=== PATIENT | female | born 1985 | race Caucasian/White ===

== ENCOUNTER 2017-12-06 13:22 | Emergency (ER) | payer OTHER ==
[2017-12-06 13:27] VITALS: BP 132/62; PULSE 100; TEMP 97.8; BMI 36.6
[2017-12-06] MEDS ORDERED: ACETAMINOPHEN 500 MG TABLET (FP) PO ONE (14:27)
[2017-12-06] MEDS ORDERED: ACETAMINOPHEN 500 MG TABLET (FP) ONE (14:30)
--- NOTE | 2017-12-06 14:33 | PDOC ---
History of Present Illness - General Chief Complaint: Pain Stated Complaint: INJURY Time Seen by Provider: 12/06/17 14:17 History Source: Patient Exam Limitations: No Limitations - History of Present Illness Initial Comments: 12/06/17 14:28 While running for a bus yesterday slipped and fell forward onto bilateral knees and twisted right ankle. States was evaluated in another emergency department but no x-rays or treatment was provided for her sore right ankle. Denies numbness or tingling to foot, states is difficult to bear weight. Has taken no medication for relief or provided any treatment Occurred: reports: yesterday Severity: reports: mild Method of Injury: Yes: fall Modifying Factors: improves with: None Loss of Consciousness: no loss of consciousness Associated Symptoms (Fall): denies symptoms Past History - Travel Traveled outside of the country in the last 30 days: No Close contact w/someone who was outside of country & ill: No - Past Medical History Allergies/Adverse Reactions: Allergies Allergy/AdvReac Type Severity Reaction Status Date / Time Penicillins Allergy Rash Verified 12/06/17 13:27 ibuprofen [From Motrin] AdvReac chest Verified 12/06/17 13:27 tightness Home Medications: Ambulatory Orders Methylphenidate HCl [Concerta] 54 mg PO DAILY 10/09/16 Risperidone [Risperdal] 6 mg PO HS 10/09/16 Sertraline HCl [Zoloft -] 100 mg PO DAILY 10/09/16 Zolpidem Tartrate [Ambien] 10 mg PO HS PRN 10/09/16 Emtricitabine/Tenofovir [Truvada -] 1 tab PO DAILY #30 tablet 10/16/16 Acetaminophen [Tylenol] 325 mg PO Q6H PRN #30 tablet 12/06/17 COPD: No Diabetes: No - Surgical History Appendectomy: Yes (2013) - Suicide/Smoking/Psychosocial Hx Smoking History: Current every day smoker Have you smoked in the past 12 months: Yes Number of Cigarettes Smoked Daily: 20 Information on smoking cessation initiated: No Hx Alcohol Use: No Drug/Substance Use Hx: Yes Review of Systems - Review of Systems Able to Perform ROS?: Yes Is the patient limited [place]ian proficient: Yes Constitutional: Yes: Symptoms Reported, See HPI, Chills, Malaise HEENTM: Yes: See HPI. No: Symptoms Reported Respiratory: Yes: See HPI. No: Symptoms reported Musculoskeletal: Yes: Symptoms Reported, See HPI, Joint Pain. No: Joint Swelling Integumentary: Yes: Symptoms Reported, See HPI, Bruising Neurological: Yes: See HPI. No: Symptoms reported, Headache All Other Systems: Reviewed and Negative *Physical Exam - Vital Signs Last Vital Signs Temp Pulse Resp BP Pulse Ox 97.8 F 100 H 20 132/62 97 12/06/17 13:25 12/06/17 13:25 12/06/17 13:25 12/06/17 13:25 12/06/17 13:25 - Physical Exam General Appearance: Yes: Nourished, Appropriately Dressed. No: Apparent Distress HEENT: positive: LUIS FERNANDO, Normal ENT Inspection, Normal Voice, TMs Normal, Pharynx Normal Neck: positive: Supple. negative: Tender Respiratory/Chest: positive: Lungs Clear, Normal Breath Sounds Gastrointestinal/Abdominal: positive: Normal Bowel Sounds, Soft. negative: Tender Musculoskeletal: positive: Other (faint superficial abrasions and ecchymoses to bilateral patella, patella is mobile without crepitus or step-offs, ). negative : Normal Inspection Extremity: positive: Normal Capillary Refill, Normal Range of Motion (he shouldn 't has no point tenderness to medial or lateral malleolus the tarsal or navicular bone, negative squeeze test. Neurovascular intact to toes) Integumentary: positive: Dry, Warm, Pale. 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 NML intact, Fully Oriented, Alert, Normal Mood/ Affect, Normal Response, Motor Strength 5/5 ED Treatment Course - RADIOLOGY Radiology Studies Ordered: Category Date Time Status ANKLE & FOOT-RIGHT* [RAD] Stat Radiology 12/06/17 14:28 Ordered Progress Note - Progress Note Progress Note: Right ankle sprain and multiple contusions *DC/Admit/Observation/Transfer Diagnosis at time of Disposition: Multiple leg contusions Qualifiers: Encounter type: initial encounter Laterality: unspecified laterality Qualified Code(s): S80.10XA - Contusion of unspecified lower leg, initial encounter Sprain of right ankle Qualifiers: Encounter type: initial encounter Involved ligament of ankle: unspecified ligament Qualified Code(s): S93.401A - Sprain of unspecified ligament of right ankle, initial encounter - Discharge Dispostion Disposition: HOME Condition at time of disposition: Stable Admit: No - Prescriptions Prescriptions: Acetaminophen [Tylenol] 325 mg PO Q6H PRN #30 tablet PRN Reason: Pain Level 1-5 - Referrals Referrals: Alfie Salvador MD [Staff Physician] - - Patient Instructions Printed Discharge Instructions: DI for Ankle Sprain Additional Instructions: Rest, ice to area on and off for 15 minutes 4-6 times a day Avoid heavy lifting or exercise until pain and swelling is resolved or until further directed Keep area highly elevated to reduce swelling Use splints/Slim wrap as directed Followup with orthopedist in one to 2 days if not improving, if significantly improved may wait one week for followup with orthopedist May use Tylenol 2-325mg every 4-6 hours as needed for pain - Post Discharge Activity
== END 2017-12-06 15:24 | disposition home or self-care (01) ==
LOC: JERFT 13:22
DX: S93.401A Sprain of unspecified ligament of right ankle, initial encounter (principal); S80.02XA Contusion of left knee, initial encounter; S80.01XA Contusion of right knee, initial encounter; W01.0XXA Fall on same level from slipping, tripping and stumbling without subsequent striking against object, initial encounter; Y93.63 Activity, rugby; Y92.480 Sidewalk as the place of occurrence of the external cause; Y99.8 Other external cause status
CPT/HCPCS: 73610-TC-RT; 73630-TC-RT; 99281-25

== ENCOUNTER 2022-09-20 11:01 | Inpatient (IN) | payer OTHER ==
[2022-09-20] MEDS ORDERED: predniSONE 20 MG TABLET (UD) PO ONE (11:43)
[2022-09-20] MEDS ORDERED: predniSONE 20 MG TABLET (UD) ONE (11:47)
[2022-09-20] MEDS ORDERED: MAG HYDROX/AL HYDROX/SIMETH 30 ML UNIT-DOSE CUP PO ONE (11:49)
[2022-09-20] MEDS ORDERED: cloNIDine HCL 0.1 MG TABLET PO ONE (11:50)
[2022-09-20] MEDS ORDERED: ALBUTEROL SO4 0.083% IH SOL 2.5 MG/3 ML VIAL.NEB. NEB ONE ×4 (11:50→12:48)
[2022-09-20] MEDS ORDERED: MAGNESIUM SULF 50% (8.12 MEQ/2 ML-1 GM VIAL) IVPB ONE (11:51)
[2022-09-20] MEDS ORDERED: FAMOTIDINE 20 MG TABLET PO ONE (11:53)
[2022-09-20] MEDS ORDERED: ACETAMINOPHEN 1000 MG/100 ML BAG IVPB ONE (11:53)
[2022-09-20] MEDS ORDERED: ACETAMINOPHEN INJECTION 100 ML IVPB ONE (11:59)
[2022-09-20] MEDS ORDERED: FAMOTIDINE 20 MG TABLET ONE (11:59)
[2022-09-20] MEDS ORDERED: cloNIDine HCL 0.1 MG TABLET ONE (11:59)
[2022-09-20] MEDS ORDERED: MAG HYDROX/AL HYDROX/SIMETH 30 ML UNIT-DOSE CUP ONE (12:00)
[2022-09-20] MEDS ORDERED: MAGNESIUM SULFATE IN WATER 2 GM/50 ML IVPB IVPB ONE (12:00)
[2022-09-20] MEDS ORDERED: LORazepam 2 MG/ML SDV VIAL IVPUSH ONE ×3 (12:10→13:43)
[2022-09-20 12:23] LABS: BASO % 0.2 % (0-2.0); HEMATOCRIT 36.7 % (32.4-45.2); HEMOGLOBIN 12.1 GM/dL (10.7-15.3); LYMPH % 6.1 % (8-40); MCH 29.5 pg (25.7-33.7); MEAN CELL VOLUME 89.4 fl (80-96); NEUT % 83.7 % (42.8-82.8); PLATELET COUNT 389 10^3/uL (134-434); RBC 4.11 M/mm3 (3.60-5.2); RDW 14.2 % (11.6-15.6); WHITE BLOOD COUNT 18.1 K/mm3 (4.0-10.0)
[2022-09-20 12:30] LABS: EPI CELLS 10 /uL (0-25.1); HYALINE CASTS 1 /uL (0-3.1); URINE APPEARANCE CLEAR; URINE BACTERIA 21 /uL (0-1359); URINE BILIRUBIN NEGATIVE (NEGATIVE); URINE COLOR YELLOW; URINE GLUCOSE (UA) NEGATIVE (NEGATIVE); URINE KETONE TRACE (NEGATIVE); URINE LEUK ESTERASE NEGATIVE (NEGATIVE); URINE NITRITE NEGATIVE (NEGATIVE); URINE PROTEIN 1+ (NEGATIVE); URINE RBC 12 /uL (0-23.9); URINE WBC 28 /uL (0-25.8)
[2022-09-20 12:45] LABS: CHLORIDE 101 mmol/L (98-107); SODIUM 140 mmol/L (136-145)
[2022-09-20 12:48] LABS: ANION GAP 9 MMOL/L (8-16); BLOOD UREA NITROGEN 15.7 mg/dL (7-18); CALCIUM 9.3 mg/dL (8.5-10.1); CO2 30 mmol/L (21-32); GLUCOSE,RANDOM 124 mg/dL (74-106); LIPASE 65 U/L (73-393); MAGNESIUM 2.4 mg/dL (1.8-2.4)
[2022-09-20 12:51] LABS: CREATININE 0.5 mg/dL (0.55-1.3); SGOT/AST 28 U/L (15-37); SGPT/ALT 41 U/L (13-61)
[2022-09-20 12:53] LABS: BILIRUBIN,TOTAL 0.3 mg/dL (0.2-1); TOT PROT 7.2 g/dl (6.4-8.2)
[2022-09-20 12:55] LABS: ALK PHOS 124 U/L (45-117)
[2022-09-20] MEDS ORDERED: ETOMIDATE 20 MG/10 ML AMPUL IVPUSH ONE (13:03)
[2022-09-20] MEDS ORDERED: SUCCINYLCHOLINE CHLORIDE 200 MG/10 ML VIAL IVPUSH ONE (13:05)
[2022-09-20] MEDS ORDERED: RAPID SEQUENCE INTUBATION KIT NR ONE ×2 (13:12→13:44)
[2022-09-20] MEDS ORDERED: ROCURONIUM BROMIDE 50 MG/5 ML VIAL IV ONE ×3 (13:40→14:13)
[2022-09-20 14:02] LABS: ARTERIAL BLD GAS O2 SATURATION 93.2 % (95-98); ARTERIAL BLOOD GAS BASE EXCESS 0.4 mmol/L (-2-2); ARTERIAL BLOOD GAS PO2 80.2 mmHg (80-100); ARTERIAL BLOOD GAS pH 7.232 (7.350-7.450)
[2022-09-20 14:05] LABS: ALLENS TEST POSITIVE; VENT MODE A/C; VENT RATE 12
[2022-09-20 14:48] LABS: SYPHILIS W/ RPR CONF NON-REACTIVE (NONREACTIVE)
[2022-09-20] MEDS ORDERED: VANCOMYCIN 1 GM/200 ML PREMIX BAG IVPB ONE (14:54)
[2022-09-20 15:18] LABS: HIV INTERPRETATION NEGATIVE (NEGATIVE)
[2022-09-20] MEDS: SODIUM CHLORIDE 1,000 ML IV SCH (15:30)
[2022-09-20] MEDS: PROPOFOL 1,000,000 MCG/100 ML VIAL IVPB SCH (15:31)
[2022-09-20] MEDS: HEPARIN NA (PORCINE) 5,000 UNITS/ML 1ML VIAL SQ SCH ×2 (15:31→21:29)
[2022-09-20] MEDS: AZITHROMYCIN IVPB 500 MG/250 ML BAG IVPB SCH (15:54)
[2022-09-20] MEDS ORDERED: LACTATED RINGERS SOLUTION 1,000 ML/1,000 ML INFUS.BAG IV STA (16:16)
[2022-09-20 16:19] LABS: ARTERIAL BLD GAS O2 SATURATION 88.5 % (95-98); ARTERIAL BLOOD GAS BASE EXCESS 3.7 mmol/L (-2-2); ARTERIAL BLOOD GAS PO2 61.5 mmHg (80-100); ARTERIAL BLOOD GAS pH 7.304 (7.350-7.450)
[2022-09-20] MEDS ORDERED: MIDAZOLAM IN 0.9 % SOD.CHLORID 1 MG/1 ML PLAST..BAG ONE (16:19)
[2022-09-20 16:21] LABS: ALLENS TEST POSITIVE
[2022-09-20 16:22] LABS: VENT MODE A/C; VENT RATE 22
[2022-09-20] MEDS: MIDAZOLAM IN 0.9 % SOD.CHLORID 100 MG/100 ML PLAST..BAG IVPB SCH (16:31)
[2022-09-20] MEDS ORDERED: ALBUTEROL SO4 2.5/IPRATROPIUM 0.5 INH SOL 3 ML VIAL.NEB. NEB SCH (17:00)
[2022-09-20] MEDS ORDERED: methylPREDNISolone NA SUCC 125 MG/2 ML VIAL IVPUSH ONE (17:47)
[2022-09-20 20:44] LABS: ARTERIAL BLD GAS O2 SATURATION 95.9 % (95-98); ARTERIAL BLOOD GAS BASE EXCESS 5.9 mmol/L (-2-2); ARTERIAL BLOOD GAS PO2 79.4 mmHg (80-100); ARTERIAL BLOOD GAS pH 7.427 (7.350-7.450)
[2022-09-20 20:45] LABS: ALLENS TEST POSITIVE
[2022-09-20 20:46] LABS: VENT MODE A/C; VENT RATE 22
[2022-09-20] MEDS: ALBUTEROL SO4 2.5/IPRATROPIUM 0.5 INH SOL 3 ML VIAL.NEB. NEB SCH (20:55)
[2022-09-20] MEDS: FAMOTIDINE 20 MG/50 ML IVPB 20 MG/50 ML MG IVPB SCH (21:28)
[2022-09-20] MEDS: MUPIROCIN 2% TOPICAL OINTMENT FOR DECOLONIZATION NS SCH (21:29)
[2022-09-20] MEDS: CHLORHEXIDINE GLUCONATE 4% CLEANSER FOR DECOLONIZATION TP SCH (21:29)
[2022-09-20] MEDS ORDERED: DEXMEDETOMIDINE PREMIX 400 MCG/100 ML BAG IVPB SCH (21:45)
[2022-09-21] MEDS: MIDAZOLAM IN 0.9 % SOD.CHLORID 100 MG/100 ML PLAST..BAG IVPB SCH ×4 (00:10→22:42)
[2022-09-21] MEDS: HEPARIN NA (PORCINE) 5,000 UNITS/ML 1ML VIAL SQ SCH ×3 (06:23→22:26)
[2022-09-21 06:59] LABS: ARTERIAL BLD GAS O2 SATURATION 91.8 % (95-98); ARTERIAL BLOOD GAS BASE EXCESS 4.1 mmol/L (-2-2); ARTERIAL BLOOD GAS PO2 63.1 mmHg (80-100); ARTERIAL BLOOD GAS pH 7.397 (7.350-7.450)
[2022-09-21 07:04] LABS: ALLENS TEST POSITIVE
[2022-09-21 07:05] LABS: VENT MODE A/C; VENT RATE 22
[2022-09-21 07:25] LABS: BASO % 0.5 % (0-2.0); HEMATOCRIT 35.5 % (32.4-45.2); HEMOGLOBIN 11.3 GM/dL (10.7-15.3); MCH 28.7 pg (25.7-33.7); MCHC 31.8 g/dl (32.0-36.0); MEAN CELL VOLUME 90.2 fl (80-96); MEAN PLT VOLUME 8.7 fl (7.5-11.1); NEUT % 88.5 % (42.8-82.8); PLATELET COUNT 372 10^3/uL (134-434); RBC 3.93 M/mm3 (3.60-5.2); RDW 14.3 % (11.6-15.6); WHITE BLOOD COUNT 12.5 K/mm3 (4.0-10.0)
[2022-09-21 07:42] LABS: INR 1.18 (0.83-1.09); PROTHROMBIN TIME (PATIENT) 13.6 SEC (9.7-13.0)
[2022-09-21] MEDS: SODIUM CHLORIDE 1,000 ML IV SCH ×3 (07:42→22:29)
[2022-09-21 07:45] LABS: ACTIVATED PTT 24.9 SECONDS (25.2-36.5)
[2022-09-21 07:55] LABS: ALBUMIN 2.6 g/dl (3.4-5.0); BLOOD UREA NITROGEN 11.9 mg/dL (7-18); CALCIUM 8.7 mg/dL (8.5-10.1); MAGNESIUM 2.9 mg/dL (1.8-2.4)
[2022-09-21 07:59] LABS: CREATININE 0.4 mg/dL (0.55-1.3); PHOSPHOROUS 3.8 mg/dL (2.5-4.9)
[2022-09-21 08:00] LABS: BILIRUBIN,TOTAL 0.5 mg/dL (0.2-1); TOT PROT 6.3 g/dl (6.4-8.2)
[2022-09-21] MEDS ORDERED: ALBUTEROL SO4 0.083% IH SOL 2.5 MG/3 ML VIAL.NEB. NEB STA ×2 (08:20)
[2022-09-21] MEDS: FENTANYL NS IVPB 500 MCG/100 ML BAG IVPB SCH ×6 (08:44→21:45)
[2022-09-21] MEDS: PROPOFOL 1,000,000 MCG/100 ML VIAL IVPB SCH (08:55)
[2022-09-21] MEDS: ALBUTEROL SO4 2.5/IPRATROPIUM 0.5 INH SOL 3 ML VIAL.NEB. NEB SCH ×4 (09:01→20:40)
[2022-09-21] MEDS: CEFTRIAXONE 1 GM in DEXTROSE 5%-WATER - 50 ML IVPB SCH (09:02)
[2022-09-21] MEDS: AZITHROMYCIN IVPB 500 MG/250 ML BAG IVPB SCH (09:04)
[2022-09-21] MEDS: FAMOTIDINE 20 MG/50 ML IVPB 20 MG/50 ML MG IVPB SCH ×2 (09:04→22:26)
[2022-09-21] MEDS: MUPIROCIN 2% TOPICAL OINTMENT FOR DECOLONIZATION NS SCH ×2 (09:05→22:26)
[2022-09-21] MEDS ORDERED: ROCURONIUM BROMIDE 50 MG/5 ML VIAL IV STA (09:43)
[2022-09-21] MEDS ORDERED: ROCURONIUM BROMIDE 50 MG/5 ML VIAL ONE (09:49)
[2022-09-21] MEDS ORDERED: CEFTRIAXONE 1 GM in DEXTROSE 5%-WATER - 50 ML IVPB SCH (10:00)
[2022-09-21] MEDS ORDERED: VECURONIUM BROMIDE 50 MG/50 ML VIAL IVPUSH STA (12:54)
[2022-09-21 13:23] LABS: ARTERIAL BLD GAS O2 SATURATION 93.6 % (95-98); ARTERIAL BLOOD GAS BASE EXCESS 3.6 mmol/L (-2-2); ARTERIAL BLOOD GAS PO2 70.8 mmHg (80-100); ARTERIAL BLOOD GAS pH 7.372 (7.350-7.450)
[2022-09-21 13:32] LABS: VENT MODE V-AC; VENT RATE 22
[2022-09-21] MEDS: VECURONIUM BROMIDE 100 MG/100 ML BAG IVPB SCH (13:57)
[2022-09-21] MEDS: ARTIFICIAL TEARS (POLYVINYL ALCOHOL) OPTH DROPS OU PRN (14:04)
[2022-09-21 18:32] LABS: ARTERIAL BLOOD GAS BASE EXCESS 1.3 mmol/L (-2-2); ARTERIAL BLOOD GAS PO2 81.1 mmHg (80-100); ARTERIAL BLOOD GAS pH 7.215 (7.350-7.450)
[2022-09-21 18:33] LABS: VENT MODE AC; VENT RATE 22
[2022-09-21] MEDS: methylPREDNISolone NA SUCC 40 MG/1 ML VIAL IVPUSH SCH (22:26)
[2022-09-21] MEDS: CHLORHEXIDINE GLUCONATE 4% CLEANSER FOR DECOLONIZATION TP SCH (22:26)
[2022-09-22] MEDS: FENTANYL NS IVPB 500 MCG/100 ML BAG IVPB SCH ×7 (01:45→20:26)
[2022-09-22 02:31] LABS: ARTERIAL BLD GAS O2 SATURATION 90.4 % (95-98); ARTERIAL BLOOD GAS BASE EXCESS 7.2 mmol/L (-2-2); ARTERIAL BLOOD GAS PO2 62.9 mmHg (80-100); ARTERIAL BLOOD GAS pH 7.354 (7.350-7.450)
[2022-09-22 02:33] LABS: VENT MODE A/C; VENT RATE 28
[2022-09-22] MEDS: methylPREDNISolone NA SUCC 40 MG/1 ML VIAL IVPUSH SCH ×4 (02:49→20:50)
[2022-09-22 06:48] LABS: ARTERIAL BLD GAS O2 SATURATION 91.3 % (95-98); ARTERIAL BLOOD GAS BASE EXCESS 5.9 mmol/L (-2-2); ARTERIAL BLOOD GAS PO2 64.2 mmHg (80-100); ARTERIAL BLOOD GAS pH 7.363 (7.350-7.450)
[2022-09-22 06:50] LABS: VENT MODE A/C; VENT RATE 28
[2022-09-22] MEDS: HEPARIN NA (PORCINE) 5,000 UNITS/ML 1ML VIAL SQ SCH ×3 (06:52→21:25)
[2022-09-22] MEDS: ALBUTEROL SO4 2.5/IPRATROPIUM 0.5 INH SOL 3 ML VIAL.NEB. NEB SCH ×4 (07:30→20:51)
[2022-09-22 08:16] LABS: HEMATOCRIT 37.7 % (32.4-45.2); HEMOGLOBIN 12.5 GM/dL (10.7-15.3); MCH 30.2 pg (25.7-33.7); MCHC 33.3 g/dl (32.0-36.0); MEAN CELL VOLUME 90.8 fl (80-96); MEAN PLT VOLUME 8.4 fl (7.5-11.1); PLATELET COUNT 420 10^3/uL (134-434); RBC 4.15 M/mm3 (3.60-5.2); RDW 14.3 % (11.6-15.6); WHITE BLOOD COUNT 14.6 K/mm3 (4.0-10.0)
[2022-09-22 08:35] LABS: ALBUMIN 2.7 g/dl (3.4-5.0); BLOOD UREA NITROGEN 18.7 mg/dL (7-18); CALCIUM 9.1 mg/dL (8.5-10.1); MAGNESIUM 2.9 mg/dL (1.8-2.4)
[2022-09-22 08:38] LABS: CREATININE 0.4 mg/dL (0.55-1.3); PHOSPHOROUS 3.5 mg/dL (2.5-4.9)
[2022-09-22 08:40] LABS: BILIRUBIN,TOTAL 0.3 mg/dL (0.2-1); TOT PROT 6.8 g/dl (6.4-8.2)
[2022-09-22] MEDS: FAMOTIDINE 20 MG/50 ML IVPB 20 MG/50 ML MG IVPB SCH ×2 (09:15→21:25)
[2022-09-22 09:34] LABS: URINE BARBITURATES NEGATIVE (NEGATIVE)
[2022-09-22 09:36] LABS: METHADONE, UR NEGATIVE (NEGATIVE); OPIATES, URI NEGATIVE (NEGATIVE); PHENCYCLIDINE,URINE NEGATIVE (NEGATIVE)
[2022-09-22 09:42] LABS: COCAINE, UR POSITIVE (NEGATIVE); URINE AMPHETAMINES NEGATIVE (NEGATIVE); URINE BENZODIAZEPINES POSITIVE (NEGATIVE)
[2022-09-22] MEDS: MUPIROCIN 2% TOPICAL OINTMENT FOR DECOLONIZATION NS SCH ×2 (10:00→21:25)
[2022-09-22] MEDS: VECURONIUM BROMIDE 100 MG/100 ML BAG IVPB SCH ×2 (10:44→13:30)
[2022-09-22] MEDS: AZITHROMYCIN IVPB 500 MG/250 ML BAG IVPB SCH (10:45)
[2022-09-22] MEDS: MIDAZOLAM IN 0.9 % SOD.CHLORID 100 MG/100 ML PLAST..BAG IVPB SCH ×3 (10:47→21:26)
[2022-09-22] MEDS: CEFTRIAXONE 1 GM in DEXTROSE 5%-WATER - 50 ML IVPB SCH (10:50)
[2022-09-22] MEDS: DEXMEDETOMIDINE PREMIX 400 MCG/100 ML BAG IVPB SCH ×2 (10:59→23:45)
[2022-09-22] MEDS: SODIUM CHLORIDE 0.45% 1,000 ML IV SCH (14:35)
[2022-09-22] MEDS: ARTIFICIAL TEARS (POLYVINYL ALCOHOL) OPTH DROPS OU PRN ×2 (16:10→21:26)
[2022-09-22] MEDS: CHLORHEXIDINE GLUCONATE 4% CLEANSER FOR DECOLONIZATION TP SCH (21:25)
[2022-09-23] MEDS: methylPREDNISolone NA SUCC 40 MG/1 ML VIAL IVPUSH SCH ×4 (02:30→20:47)
[2022-09-23] MEDS: FENTANYL NS IVPB 500 MCG/100 ML BAG IVPB SCH ×2 (02:48→07:46)
[2022-09-23] MEDS: HEPARIN NA (PORCINE) 5,000 UNITS/ML 1ML VIAL SQ SCH ×3 (05:12→21:08)
[2022-09-23] MEDS: ALBUTEROL SO4 2.5/IPRATROPIUM 0.5 INH SOL 3 ML VIAL.NEB. NEB SCH ×5 (08:15→20:25)
[2022-09-23 08:31] LABS: BASO % 0.3 % (0-2.0); HEMATOCRIT 35.4 % (32.4-45.2); HEMOGLOBIN 11.9 GM/dL (10.7-15.3); LYMPH % 10.6 % (8-40); MCH 30.3 pg (25.7-33.7); MCHC 33.7 g/dl (32.0-36.0); MEAN CELL VOLUME 90.1 fl (80-96); MEAN PLT VOLUME 8.5 fl (7.5-11.1); MONO % 5.7 % (3.8-10.2); NEUT % 83.4 % (42.8-82.8); PLATELET COUNT 400 10^3/uL (134-434); RBC 3.93 M/mm3 (3.60-5.2); RDW 14.3 % (11.6-15.6); WHITE BLOOD COUNT 8.8 K/mm3 (4.0-10.0)
[2022-09-23 08:46] LABS: CALCIUM 8.9 mg/dL (8.5-10.1)
[2022-09-23 08:47] LABS: ALBUMIN 2.3 g/dl (3.4-5.0); BLOOD UREA NITROGEN 27.4 mg/dL (7-18)
[2022-09-23 08:50] LABS: CREATININE 0.3 mg/dL (0.55-1.3)
[2022-09-23 08:51] LABS: BILIRUBIN,TOTAL 0.2 mg/dL (0.2-1); TOT PROT 6.2 g/dl (6.4-8.2)
[2022-09-23 08:55] LABS: ARTERIAL BLOOD GAS BASE EXCESS 4.3 mmol/L (-2-2); ARTERIAL BLOOD GAS PO2 106.7 mmHg (80-100); ARTERIAL BLOOD GAS pH 7.431 (7.350-7.450)
[2022-09-23 08:58] LABS: VENT MODE AC; VENT RATE 28
[2022-09-23] MEDS: FAMOTIDINE 20 MG/50 ML IVPB 20 MG/50 ML MG IVPB SCH ×2 (09:27→21:08)
[2022-09-23] MEDS: CEFTRIAXONE 1 GM in DEXTROSE 5%-WATER - 50 ML IVPB SCH (09:28)
[2022-09-23] MEDS: AZITHROMYCIN IVPB 500 MG/250 ML BAG IVPB SCH (09:29)
[2022-09-23] MEDS: MUPIROCIN 2% TOPICAL OINTMENT FOR DECOLONIZATION NS SCH ×2 (09:44→21:08)
[2022-09-23] MEDS ORDERED: LACTATED RINGERS SOLUTION 1,000 ML/1,000 ML INFUS.BAG IV SCH (12:15)
[2022-09-23] MEDS: SODIUM CHLORIDE 0.45% 1,000 ML IV SCH (13:41)
[2022-09-23] MEDS: VECURONIUM BROMIDE 100 MG/100 ML BAG IVPB SCH (13:42)
[2022-09-23] MEDS: DEXMEDETOMIDINE PREMIX 400 MCG/100 ML BAG IVPB SCH ×2 (14:46→23:40)
[2022-09-23] MEDS: hydrALAZINE HCL 20 MG/ML VIAL IVPUSH PRN (20:49)
[2022-09-23] MEDS: CHLORHEXIDINE GLUCONATE 4% CLEANSER FOR DECOLONIZATION TP SCH (21:08)
[2022-09-24] MEDS: methylPREDNISolone NA SUCC 40 MG/1 ML VIAL IVPUSH SCH ×4 (03:20→20:48)
[2022-09-24] MEDS: HEPARIN NA (PORCINE) 5,000 UNITS/ML 1ML VIAL SQ SCH (05:27)
[2022-09-24] MEDS: hydrALAZINE HCL 20 MG/ML VIAL IVPUSH PRN (07:05)
[2022-09-24 07:39] LABS: BASO % 0.2 % (0-2.0); EOS % 0.1 % (0-4.5); HEMATOCRIT 42.3 % (32.4-45.2); HEMOGLOBIN 14.2 GM/dL (10.7-15.3); LYMPH % 8.7 % (8-40); MCHC 33.6 g/dl (32.0-36.0); MEAN CELL VOLUME 89.2 fl (80-96); MEAN PLT VOLUME 7.7 fl (7.5-11.1); MONO % 5.8 % (3.8-10.2); NEUT % 85.2 % (42.8-82.8); PLATELET COUNT 393 10^3/uL (134-434); RBC 4.74 M/mm3 (3.60-5.2); RDW 14.2 % (11.6-15.6); WHITE BLOOD COUNT 13.5 K/mm3 (4.0-10.0)
[2022-09-24 07:59] LABS: ALBUMIN 2.6 g/dl (3.4-5.0); BLOOD UREA NITROGEN 21.7 mg/dL (7-18)
[2022-09-24 08:02] LABS: CREATININE 0.4 mg/dL (0.55-1.3)
[2022-09-24 08:04] LABS: BILIRUBIN,TOTAL 0.6 mg/dL (0.2-1); TOT PROT 6.3 g/dl (6.4-8.2)
[2022-09-24] MEDS: ALBUTEROL SO4 2.5/IPRATROPIUM 0.5 INH SOL 3 ML VIAL.NEB. NEB SCH ×4 (08:06→20:40)
[2022-09-24] MEDS: MUPIROCIN 2% TOPICAL OINTMENT FOR DECOLONIZATION NS SCH ×2 (09:57→21:26)
[2022-09-24] MEDS: CEFTRIAXONE 1 GM in DEXTROSE 5%-WATER - 50 ML IVPB SCH (09:58)
[2022-09-24] MEDS: FAMOTIDINE 20 MG/50 ML IVPB 20 MG/50 ML MG IVPB SCH ×2 (09:58→21:26)
[2022-09-24] MEDS: AZITHROMYCIN IVPB 500 MG/250 ML BAG IVPB SCH (09:59)
[2022-09-24] MEDS: DEXMEDETOMIDINE PREMIX 400 MCG/100 ML BAG IVPB SCH (11:53)
[2022-09-24 14:43] VITALS: BMI 18.9
[2022-09-24] MEDS: ENOXAPARIN NA (PORCINE) 40 MG/0.4 ML DISP.SYRIN SQ SCH (15:52)
[2022-09-24] MEDS: CHLORHEXIDINE GLUCONATE 4% CLEANSER FOR DECOLONIZATION TP SCH (21:26)
[2022-09-25] MEDS: methylPREDNISolone NA SUCC 40 MG/1 ML VIAL IVPUSH SCH ×3 (02:31→17:07)
[2022-09-25] MEDS: DEXMEDETOMIDINE PREMIX 400 MCG/100 ML BAG IVPB SCH ×2 (02:32→15:44)
[2022-09-25] MEDS: hydrALAZINE HCL 20 MG/ML VIAL IVPUSH PRN (04:14)
[2022-09-25 07:21] LABS: BASO % 0.4 % (0-2.0); HEMATOCRIT 39.3 % (32.4-45.2); HEMOGLOBIN 13.6 GM/dL (10.7-15.3); LYMPH % 10.8 % (8-40); MCH 30.2 pg (25.7-33.7); MCHC 34.6 g/dl (32.0-36.0); MEAN CELL VOLUME 87.2 fl (80-96); MEAN PLT VOLUME 7.7 fl (7.5-11.1); MONO % 8.2 % (3.8-10.2); NEUT % 80.6 % (42.8-82.8); PLATELET COUNT 400 10^3/uL (134-434); RBC 4.51 M/mm3 (3.60-5.2); RDW 14.2 % (11.6-15.6); WHITE BLOOD COUNT 8.8 K/mm3 (4.0-10.0)
[2022-09-25 07:41] LABS: ALBUMIN 2.5 g/dl (3.4-5.0); CALCIUM 8.6 mg/dL (8.5-10.1)
[2022-09-25 07:42] LABS: BLOOD UREA NITROGEN 19.7 mg/dL (7-18)
[2022-09-25 07:44] LABS: CREATININE 0.4 mg/dL (0.55-1.3)
[2022-09-25 07:46] LABS: BILIRUBIN,TOTAL 0.8 mg/dL (0.2-1); TOT PROT 6.3 g/dl (6.4-8.2)
[2022-09-25] MEDS: ALBUTEROL SO4 2.5/IPRATROPIUM 0.5 INH SOL 3 ML VIAL.NEB. NEB SCH ×3 (08:34→20:21)
[2022-09-25] MEDS: AZITHROMYCIN IVPB 500 MG/250 ML BAG IVPB SCH (09:00)
[2022-09-25] MEDS: MUPIROCIN 2% TOPICAL OINTMENT FOR DECOLONIZATION NS SCH (09:12)
[2022-09-25] MEDS: ENOXAPARIN NA (PORCINE) 40 MG/0.4 ML DISP.SYRIN SQ SCH (09:12)
[2022-09-25] MEDS: FAMOTIDINE 20 MG/50 ML IVPB 20 MG/50 ML MG IVPB SCH ×2 (10:29→22:42)
[2022-09-25] MEDS ORDERED: ALBUTEROL SO4 HFA INHALER IH PRN (10:35)
[2022-09-25] MEDS: NICOTINE 14 MG/24 HOURS TOPICAL PATCH TD SCH (11:31)
[2022-09-25] MEDS: CEFTRIAXONE 1 GM in DEXTROSE 5%-WATER - 50 ML IVPB SCH (11:31)
[2022-09-25] MEDS ORDERED: cloNIDine HCL 0.1 MG TABLET PO PRN (15:15)
[2022-09-25] MEDS ORDERED: methaDONE HCL 10 MG TABLET PO ONE (15:30)
[2022-09-25] MEDS ORDERED: MELATONIN 5 MG TABLETS PO SCH (22:00)
[2022-09-25] MEDS: CHLORHEXIDINE GLUCONATE 4% CLEANSER FOR DECOLONIZATION TP SCH (22:41)
[2022-09-25] MEDS: BUDESONIDE/FORMETEROL FUMARATE 160/4.5 mcg INHALER IH SCH (22:42)
[2022-09-26] MEDS ORDERED: ACETAMINOPHEN 325 MG TABLET (FP) PO PRN (01:25)
[2022-09-26] MEDS: methylPREDNISolone NA SUCC 40 MG/1 ML VIAL IVPUSH SCH ×2 (02:32→09:05)
[2022-09-26] MEDS: ALBUTEROL SO4 2.5/IPRATROPIUM 0.5 INH SOL 3 ML VIAL.NEB. NEB SCH ×3 (07:20→15:44)
[2022-09-26] MEDS: ENOXAPARIN NA (PORCINE) 40 MG/0.4 ML DISP.SYRIN SQ SCH (09:05)
[2022-09-26] MEDS: BUDESONIDE/FORMETEROL FUMARATE 160/4.5 mcg INHALER IH SCH (09:05)
[2022-09-26] MEDS: FAMOTIDINE 20 MG/50 ML IVPB 20 MG/50 ML MG IVPB SCH (09:05)
[2022-09-26] MEDS: CEFTRIAXONE 1 GM in DEXTROSE 5%-WATER - 50 ML IVPB SCH (09:35)
[2022-09-26] MEDS: NICOTINE 14 MG/24 HOURS TOPICAL PATCH TD SCH (10:32)
[2022-09-26] MEDS: AZITHROMYCIN IVPB 500 MG/250 ML BAG IVPB SCH (10:32)
[2022-09-26 14:20] VITALS: BP 109/67; RESP 20; TEMP 98.2
[2022-09-26 15:44] VITALS: PULSE 77
[2022-09-27] MEDS ORDERED: PANTOPRAZOLE 40 MG TABLET PO SCH (10:00)
[2022-09-27] MEDS ORDERED: methaDONE HCL 10 MG TABLET PO ONE (10:00)
[2022-09-29] MEDS ORDERED: methaDONE HCL 10 MG TABLET PO ONE (10:00)
== END 2022-09-26 16:45 | disposition left against medical advice (07) | DRG 208 ==
LOC: JER 11:01 → JERBED 13:05 → JICU 15:10
PROVIDERS: ADMIT Internal Medicine Pulmonary Disease; ATTEND Internal Medicine
PROC: 0BH17EZ Insertion of Endotracheal Airway into Trachea, Via Natural or Artificial Opening (ICD-10-PCS; principal; 2022-09-20)
PROC: 5A1945Z Respiratory Ventilation, 24-96 Consecutive Hours (ICD-10-PCS; 2022-09-20)
PROC: 4A133B1 Monitoring of Arterial Pressure, Peripheral, Percutaneous Approach (ICD-10-PCS; 2022-09-21)
PROC: 4A133J1 Monitoring of Arterial Pulse, Peripheral, Percutaneous Approach (ICD-10-PCS; 2022-09-21)
PROC: HZ2ZZZZ Detoxification Services for Substance Abuse Treatment (ICD-10-PCS; 2022-09-21)
PROC: 0D9670Z Drainage of Stomach with Drainage Device, Via Natural or Artificial Opening (ICD-10-PCS; 2022-09-21)
DX: J18.9 Pneumonia, unspecified organism (principal); J80 Acute respiratory distress syndrome; J45.901 Unspecified asthma with (acute) exacerbation; N39.0 Urinary tract infection, site not specified; F60.3 Borderline personality disorder; F31.9 Bipolar disorder, unspecified; F11.10 Opioid abuse, uncomplicated; D72.829 Elevated white blood cell count, unspecified; R00.0 Tachycardia, unspecified; F14.10 Cocaine abuse, uncomplicated; B97.89 Other viral agents as the cause of diseases classified elsewhere; R91.8 Other nonspecific abnormal finding of lung field; R19.7 Diarrhea, unspecified; M41.9 Scoliosis, unspecified; B95.4 Other streptococcus as the cause of diseases classified elsewhere
CPT/HCPCS: 0241U-QW; 36415; 36600; 71045-TC-FY; 71275-TC; 74019-TC-FY; 80053; 80307; 81003; 82803; 82962; 83605; 83690; 83735; 84100; 84702; 85025; 85027; 85610; 85730; 86359; 86360; 86480; 86780; 87040; 87070; 87077; 87086; 87102; 87116; 87186; 87205; 87206; 87209; 87210; 87305; 87389; 87449; 87633; 87899; 93005; 93010; 94002; 94640; 97116-GP; 97161-GP; 99291; C9803-CS; J1644; Q9967; U0003; U0005

== ENCOUNTER 2022-12-27 07:13 | Emergency (ER) | payer OTHER ==
[2022-12-27 07:22] VITALS: BP 106/72; PULSE 82; RESP 18; TEMP 98; BMI 17.2
[2022-12-27] MEDS ORDERED: CYCLOBENZAPRINE HCL 10 MG TABLET (FP) PO ONE (09:33)
[2022-12-27] MEDS ORDERED: LIDOCAINE 5% TOPICAL PATCH TP ONE (09:33)
[2022-12-27] MEDS ORDERED: ACETAMINOPHEN 325 MG TABLET (FP) ONE (10:10)
[2022-12-27] MEDS ORDERED: LIDOCAINE 5% TOPICAL PATCH ONE (10:10)
[2022-12-27] MEDS ORDERED: CYCLOBENZAPRINE HCL 10 MG TABLET (FP) ONE (10:10)
[2022-12-27] MEDS: ACETAMINOPHEN 325 MG TABLET (FP) PO ONE ×2 (10:24→10:28)
[2022-12-27] MEDS ORDERED: LIDOCAINE PATCH REMOVAL MC SCH (22:00)
== END 2022-12-27 12:32 | disposition home or self-care (01) ==
LOC: JER 07:13
DX: S20.222A Contusion of left back wall of thorax, initial encounter (principal); S30.0XXA Contusion of lower back and pelvis, initial encounter; W10.9XXA Fall (on) (from) unspecified stairs and steps, initial encounter
CPT/HCPCS: 71101-TC-LT-FY; 72100-TC-FY; 99284-25